=== PATIENT | female | born 1960 | race Asian ===

== ENCOUNTER 2016-06-10 16:08 | Inpatient (IN) | payer OTHER ==
[~2016-06-10] VITALS: Ht 152.4 cm; Wt 59.5 kg
[~2016-06-10 16:08] MED LIST: AMLO-511 PO; ASPI81TA2 PO; ATEN25 PO; BENA10TA3 PO; METF500T4 PO
[2016-06-10] MEDS ORDERED: SIMV20TA6 PO (16:18)
[2016-06-10 16:26] LABS: GLUCOSE,POINT OF CARE 198 MG/DL (70-110)
[2016-06-10 17:04] LABS: BASOPHILS % (AUTO) 0.4 % (0.0-2.0); EOSINOPHILS % (AUTO) 3.4 % (1.0-6.0); HEMATOCRIT 43.2 % (36-46); HEMOGLOBIN 14.3 g/dL (12.0-16.0); LYMPHOCYTES # (AUTO) 3.3 K/uL (1.0-4.8); LYMPHOCYTES % (AUTO) 35.5 % (22.0-44.0); MEAN CORPUSCULAR HEMOGLOBIN 29.9 pg (26.0-34.0); MEAN CORPUSCULAR HGB CONC 33.1 G/dL (31.0-37.0); MEAN CORPUSCULAR VOLUME 90 fL (80-100); MONOCYTES # (AUTO) 0.7 K/uL (0.1-1.0); MONOCYTES % (AUTO) 6.9 % (2.0-9.0); NEUTROPHILS % (AUTO) 53.8 % (40.0-70.0); PLATELET COUNT (AUTO) 270 K/uL (150-450); RED BLOOD CELL COUNT(AUTO) 4.79 MIL/uL (4.00-5.20); RED CELL DISTRIBUTION WIDTH 13.4 % (11.5-14.5); WHITE BLOOD COUNT (AUTO) 9.4 K/uL (4.5-11.0)
[2016-06-10 17:19] LABS: ANION GAP 12 mmol/L (8-16); CALCIUM, TOTAL 8.8 mg/dL (8.8-10.5); CARBON DIOXIDE 24 mmol/L (22-29); CHLORIDE 103 mmol/L (98-107); GLOMERULAR FILTR. RATE CALC > 60 mL/min (>60); POTASSIUM 3.6 mmol/L (3.5-5.1); SODIUM SERUM 139 mmol/L (136-145); UREA NITROGEN, BLOOD 11 mg/dL (7-18)
[2016-06-10 17:25] LABS: ALANINE AMINOTRANSFERASE 28 U/L (12-78); ALBUMIN 3.8 g/dL (3.4-5.0); ASPARTATE AMINOTRANSFERASE 15 U/L (15-37); BILIRUBIN,TOTAL 0.6 mg/dL (0.1-1.0); TOTAL PROTEIN, SERUM 7.4 g/dL (6.4-8.2)
[2016-06-10] MEDS ORDERED: DILTIAZEM HCL 5 MG/ML 5 ML VIAL IVP ONE (17:30)
[2016-06-10] MEDS ORDERED: ASPIRIN 81 MG CHEWABLE TABLET PO ONE (17:30)
[2016-06-10 17:32] LABS: B-TYPE NATRIURETIC PEPTIDE 30 pg/mL (0-100)
[2016-06-10] MEDS ORDERED: ADENOSINE 3 MG/ML 2 ML VIAL IVP ONE (18:00)
[2016-06-10] MEDS ORDERED: ACETAMINOPHEN 325 MG TABLET PO PRN ×2 (19:30→21:00)
[2016-06-10] MEDS ORDERED: 0.9% SODIUM CHLORIDE 10 ML SYRINGE IVP PRN (19:30)
[2016-06-10] MEDS ORDERED: ONDANSETRON HCL 4 MG/2 ML VIAL IVP PRN (19:30)
[2016-06-10 20:08] VITALS: BP 125/68
[2016-06-10] MEDS ORDERED: DEXTROSE 50%-WATER 25 GM/50 ML SYRINGE IVP PRN (20:30)
[2016-06-10] MEDS ORDERED: INSULIN ASPART 100 UNITS/ML SQ PRN (20:30)
[2016-06-10] MEDS ORDERED: PNEUMOCOCCAL VACCINE POLYVALENT 0.5 ML VIAL [PPSV23] IM ONE (21:00)
[2016-06-10] MEDS ORDERED: SIMVASTATIN 20 MG TABLET PO SCH (21:00)
[2016-06-10] MEDS ORDERED: ZOLPIDEM TARTRATE 5 MG TABLET PO PRN (21:00)
[2016-06-10] MEDS ORDERED: MAGNESIUM HYDROXIDE SUSPENSION 30 ML UDCUP PO PRN (21:00)
[2016-06-10] MEDS ORDERED: OxyCODONE HCL/ACETAMINOPHEN 5-325 MG TABLET PO PRN (21:00)
[2016-06-10] MEDS: DOCUSATE SODIUM 100 MG CAPSULE PO SCH (21:00)
[2016-06-11 00:40] VITALS: BP 100/58
[2016-06-11 04:14] VITALS: BP 106/58
[2016-06-11 06:56] LABS: GLUCOSE COMMENT 1 Received Meds; GLUCOSE,POINT OF CARE 174 MG/DL (70-110)
[2016-06-11 06:56] LABS: GLUCOSE,POINT OF CARE 116 MG/DL (70-110)
[2016-06-11 07:31] VITALS: BP 119/64
[2016-06-11] MEDS ORDERED: PROPAFENONE HCL 150 MG TABLET PO SCH (08:00)
[2016-06-11] MEDS: DOCUSATE SODIUM 100 MG CAPSULE PO SCH (08:45)
[2016-06-11] MEDS ORDERED: ASPIRIN 81 MG CHEWABLE TABLET PO SCH (09:00)
[2016-06-11] MEDS ORDERED: PANTOPRAZOLE SODIUM 40 MG DR TABLET PO SCH (09:00)
[2016-06-11] MEDS ORDERED: RYTH150 PO (11:08)
[2016-06-11 11:34] VITALS: BP 111/74
[2016-06-11] MEDS ORDERED: ATEN25 PO (12:25)
[2016-06-11 17:47] LABS: GLUCOSE,POINT OF CARE 118 MG/DL (70-110)
== END 2016-06-11 12:40 | disposition home or self-care (01) | DRG 201 ==
LOC: EMS 16:12 → 5S 18:16
PROVIDERS: ADMIT Internal Medicine; ATTEND Internal Medicine
PROC: 3E0234Z Introduction of Serum, Toxoid and Vaccine into Muscle, Percutaneous Approach (ICD-10-PCS; principal; 2016-06-11)
DX: I47.1 Supraventricular tachycardia (principal); I49.5 Sick sinus syndrome; I10 Essential (primary) hypertension; E11.9 Type 2 diabetes mellitus without complications; E78.5 Hyperlipidemia, unspecified; Z23 Encounter for immunization; Z79.82 Long term (current) use of aspirin; Z79.899 Other long term (current) drug therapy
CPT/HCPCS: 82948; 82962; 90471; 93005; 93306; 96374; 99285; J0153; J3490

== ENCOUNTER → 2022-02-16 | Outpatient (CLI) | payer OTHER ==
[~2022-02-16] MED LIST changes: +AMLO-257 PO; -AMLO-511 PO; +ASPI-1198 PO; -ASPI81TA2 PO; +ATEN-73 PO; -ATEN25 PO; -BENA10TA3 PO; +BENA10TA76 PO; +METF-444 PO; -METF500T4 PO; +PROP150T28 PO; +SIMV-43 PO
== END | disposition home or self-care (01) ==
LOC: RADPV 14:19
PROVIDERS: ATTEND Internal Medicine
DX: M50.322 Other cervical disc degeneration at C5-C6 level (principal); M50.323 Other cervical disc degeneration at C6-C7 level; M46.02 Spinal enthesopathy, cervical region; M47.22 Other spondylosis with radiculopathy, cervical region; M19.012 Primary osteoarthritis, left shoulder; M75.92 Shoulder lesion, unspecified, left shoulder; M75.00 Adhesive capsulitis of unspecified shoulder
CPT/HCPCS: 72040; 73030-TC

== ENCOUNTER → 2022-03-06 | Outpatient (CLI) | payer OTHER | END | disposition home or self-care (01) | LOC: EEVIPCON 11:47 → RADMN 11:47 | PROVIDERS: ATTEND Internal Medicine | DX: M47.817 Spondylosis without myelopathy or radiculopathy, lumbosacral region (principal); M47.898 Other spondylosis, sacral and sacrococcygeal region; M46.08 Spinal enthesopathy, sacral and sacrococcygeal region; M51.36 Other intervertebral disc degeneration, lumbar region; K59.00 Constipation, unspecified; M54.50 Low back pain, unspecified | CPT/HCPCS: 72100; 72202 ==

== ENCOUNTER → 2022-08-12 | Outpatient (CLI) | payer OTHER | END | disposition home or self-care (01) | LOC: RADMN 14:01 | PROVIDERS: ATTEND Internal Medicine | DX: M19.012 Primary osteoarthritis, left shoulder (principal); M25.512 Pain in left shoulder | CPT/HCPCS: 73030-TC ==